=== PATIENT | female | born 1990 | race Caucasian/White ===

== ENCOUNTER → 2019-10-25 17:12 | Outpatient (BNVA) | payer OTHER, SELFPAY | PROVIDERS: Family Provider Nurse Practitioner Family; PCP Registered Nurse; Visit Provider Nurse Practitioner Family | DX: M79.671 Pain in right foot (principal); S92.911A Unspecified fracture of right toe(s), initial encounter for closed fracture; X58.XXXA Exposure to other specified factors, initial encounter | CPT/HCPCS: 73630 ==

== ENCOUNTER → 2019-12-12 13:55 | Outpatient (BNVA) | payer OTHER, SELFPAY | PROVIDERS: Family Provider Nurse Practitioner Family; PCP Registered Nurse; Visit Provider Registered Nurse | DX: J02.9 Acute pharyngitis, unspecified (principal); J01.40 Acute pansinusitis, unspecified | CPT/HCPCS: 87880 ==

== ENCOUNTER 2020-02-08 08:53 | Emergency (ER) | payer OTHER, SELFPAY ==
[2020-02-08 08:59] VITALS: BP 117/50; PULSE 97; RESP 18; TEMP 36.9; O2SAT 97; BMI 21.6
[2020-02-08 09:07] VITALS: BP 117/50; PULSE 101; PULSE 93; RESP 20; O2SAT 98
--- NOTE | 2020-02-08 09:07 | XRR_ITS ---
PROCEDURE INFORMATION: Exam: XR Left Ankle Exam date and time: 02/08/2020 9:29 AM Age: 29 years old Clinical indication: Injury or trauma; Initial encounter; Blunt trauma; Ankle; Left; Injury date: 02/08/20; Injury details: Fall 10 foot from fence TECHNIQUE: Imaging protocol: XR Left ankle. Views: 3 or more views. COMPARISON: No relevant prior studies available. FINDINGS: Bones/joints: Medial and lateral malleoli are normal. Ankle mortise is symmetrical. No fracture. Hindfoot is unremarkable. Tibiotalar joint normal. subtalar joint poorly visualized Soft tissues: Normal. XR/XR ankle LT min 3V* [id number] IMPRESSION: Normal ankle.
--- NOTE | 2020-02-08 09:07 | XRR_ITS ---
PROCEDURE INFORMATION: Exam: XR Left Tibia and Fibula Exam date and time: 02/08/2020 9:29 AM Age: 29 years old Clinical indication: Injury or trauma; Initial encounter; Blunt trauma; Lower leg; Left; Injury date: 02/08/20; Injury details: Fall 10 from fence TECHNIQUE: Imaging protocol: XR Left tibia and fibula. Views: 2 views. COMPARISON: No relevant prior studies available. FINDINGS: Bones/joints: Osseous structures normal. No erosive changes. No periosteal response. No fracture. No soft tissue calcifications. Osseous structures about the knee normal. No joint effusion. Soft tissues unremarkable. Medial and lateral malleoli normal. ankle mortise is symmetrical. Hindfoot foot unremarkable. Tibiotalar joint and the subtalar joint normal. Soft tissues: See Bones/joints finding. XR/XR tibia fibula LT 2V [id number] IMPRESSION: Normal leg.
--- NOTE | 2020-02-08 09:08 | ED_ITS ---
HPI - Extremity Problem General: Chief complaint: Extremity Injury, Lower Stated complaint: l ankle injury Time Seen by Provider: 02/08/20 08:55 History of Present Illness: HPI Narrative: Patient states he was staying on the fence work outside o'clock this morning and she fell off a fence landing on her right ankle and it went out from underneath her and she felt a pop. Complains about pain to the lateral aspect and and above the ankle now cannot bear weight. MD Complaint: extremity pain and joint pain Onset (ago): minute(s) Pain Consistency: constant Location: left and lower extremity Severity scale (1-10): 7 Quality: aching Radiation: proximal Relieving factors: immobilization Exacerbating factors: range of motion and weight bearing Associated symptoms: Reports no associated symptoms; Deny chest pain, fever(s) or rash Review of Systems Const: Denies: fever(s), chills or body aches Eyes: Denies: change in vision or blurry vision ENMT: Denies: throat pain or nasal congestion Card: Denies: chest pain or dyspnea on exertion Resp: Denies: dyspnea, productive cough or non-productive cough GI: Denies: abdominal pain, nausea or vomiting Musc: Reports: extremity pain (Left ankle area) Skin/Breast: Denies: rash Neuro: Denies: headache(s) Psych: Denies: anxiety or depression Ronny/Lymph: Denies: easy bruising PFSH ED PFSH: Social History Smoking and tobacco status: current every day smoker Second hand smoke exposure: No Smoking risk assessment/counseling performed?: No Alcohol intake: never Desire information about alcohol rehabilitation?: No Counseling given: No Desire information about substance/drug rehabilitation?: No Counseling given: No Current gender identity: Female Physical Exam Const: COMMON NORMALS: no acute distress, average body habitus and patient oriented x3 HENMT: COMMON NORMALS: normocephalic HEAD & SCALP: normal to inspection and normocephalic FACE & SINUS: normal facial exam Eye: COMMON NORMALS: conjunctivae normal GENERAL EYE: appearance normal, both eyes and all related structures CONJUNCTIVA: Yes conjunctivae normal Neck/C-Spine: COMMON NORMALS: no JVD Chest: COMMONS NORMALS: normal inspection of the chest Resp: COMMON NORMALS: normal respiratory effort Cardio: COMMON NORMALS: no JVD Extremity: COMMON NORMALS: normal to inspection and full ROM LEFT LOWER EXTREMITY: Yes ankle joint (Tender to the lateral malleus and above it about 2 inches. Mild bruising swelling neurovascular distal is intact) Neuro: COMMON NORMALS: patient oriented x3 Course Vital Signs: Vital signs: Vital Signs Temperature 98.4 F 02/08/20 08:59 Pulse Rate 97 02/08/20 08:59 Respiratory Rate 18 02/08/20 08:59 Blood Pressure 117/50 02/08/20 08:59 Pulse Oximetry 97 02/08/20 08:59 Discharge Plan Discharge Prescriptions: No Action hydroxyzine HCl 25 mg tablet 25 mg PO BID PRN (Reason: anxiety) Qty: 60 RF: 5 amoxicillin-pot clavulanate [Augmentin] 875-125 mg tablet 1 tab PO BID 7 Days Qty: 14 RF: 0 Coding Level of Care Code ED [employer] for Eliana Wing
[2020-02-08] MEDS: HYDROcodone-acetaminophen 5-325 mg Tablet 1 TAB PO (10:14)
[2020-02-08 11:10] VITALS: BP 108/69; PULSE 69; RESP 17; O2SAT 99
== END 2020-02-08 11:14 | disposition home or self-care (01) ==
PROVIDERS: Emergency Provider Nurse Practitioner Family; PCP Registered Nurse
DX: S99.912A Unspecified injury of left ankle, initial encounter (principal); W17.89XA Other fall from one level to another, initial encounter; F17.210 Nicotine dependence, cigarettes, uncomplicated
CPT/HCPCS: 12345; 73590; 73610; 99281; 99283

== ENCOUNTER → 2020-02-26 09:48 | Outpatient (BNVA) | payer OTHER, SELFPAY | PROVIDERS: PCP Registered Nurse; Visit Provider Nurse Practitioner Family | DX: Z20.2 Contact with and (suspected) exposure to infections with a predominantly sexual mode of transmission (principal) | CPT/HCPCS: 80074; 87491; 87591; 87806 ==

== ENCOUNTER → 2020-08-04 10:30 | Outpatient (BNVA) | payer OTHER, SELFPAY | PROVIDERS: PCP Registered Nurse; Visit Provider Registered Nurse | DX: J06.9 Acute upper respiratory infection, unspecified (principal); Z20.828 Contact with and (suspected) exposure to other viral communicable diseases | CPT/HCPCS: 87400; 87635 ==